=== PATIENT | male | born 1970 | race African-American/Black ===

== ENCOUNTER 2016-09-24 05:20 | Day surgery (SDC) | payer BC ==
[~2016-09-24] VITALS: Ht 198.1 cm; Wt 115.7 kg
[~2016-09-24 05:20] MED LIST: STRATTERA10 MG PO
[2016-09-24] MEDS ORDERED: VITAMIN B-1250 MCG (08:27)
[2016-09-24] MEDS ORDERED: VITAMIN C250 MG (08:27)
[2016-09-24 08:32] VITALS: BP 134/82; Ht 198.1 cm; Wt 115.7 kg
[2016-09-24] MEDS ORDERED: HYDROCODONE-APA1 TAB PO (10:47)
--- NOTE | 2016-09-24 13:39 | NUR ---
1300 DISCHARGE INSTRUCTIONS REVIEWED WITH PATIENT; VERBALIZED UNDERSTANDING. DECLINED CRUTCH TRAINING
--- NOTE | 2016-09-25 15:11 | OP ---
PATIENT NAME: MYRNA BOWSER MEDICAL RECORD: [id number] :68 LOCATION:[facility] ADMISSION DATE: SURGEON: MEL GLYNN MD DATE OF OPERATION: 09/24/2016 PREOPERATIVE DIAGNOSIS: Patellofemoral joint arthritis as well as lateral meniscus tear. POSTOPERATIVE DIAGNOSES: Patellofemoral joint arthritis as well as lateral meniscus tear. PROCEDURE: Arthroscopic partial lateral meniscectomy. SURGEON: Mel Glynn M.D. ANESTHESIA: General. INTRAOPERATIVE COMPLICATIONS: None. 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 OPERATIVE SUMMARY IN DETAIL: After obtaining the appropriate preoperative orthopedic surgery consent as well as anesthetic consultation, evaluation, and clearance, the patient was brought to the operating room and placed on the operating table in supine position. After adequate general laryngeal mask was administered, tourniquet was placed about the proximal aspect of the right lower extremity. Right lower extremity was then prepped and draped in a routine sterile fashion. The leg was elevated and exsanguinated and tourniquet inflated to 350 mmHg. Routine inferolateral portal was established followed by superior medial portal and inferomedial portal. Diagnostic arthroscopy did reveal the above findings. With the knee in a [id number] position, an arthroscopic resector was utilized to debride the lateral meniscus along with a meniscotome to debride the lateral meniscus back to stable meniscus elements. Having completed this, the portal was switched to the medial side for direct visualization of the lateral retinaculum. Lateral retinaculum was then released using arthroscopic scissors from the inferior lateral portal to just beneath the vastus lateralis insertion point of the tendon. Having completed this, arthroscopy portals were closed in routine interrupted fashion. The knee was insufflated with 30 cc of 0.25% Marcaine with epinephrine and 80 mg of Depo-Medrol. Arthroscopy portals were closed in routine interrupted fashion using 4-0 Prolene. Sterile dressings were applied. The patient was awakened, taken to recovery in stable condition. All final needle and sponge counts were correct. TRANSINT:[id number] Voice Confirmation ID: [id number] DOCUMENT ID: [id number] OPERATIVE REPORT [id number] NIELSMYRNA MEL LOPEZ MD at 1511 CC: [id number] DICTATION DATE: 09/24/16 1152 TELEVISION PRESENTER: 09/24/16 1259 [facility] 09/24/16 [id number] [place] [id number]
== END 2016-09-24 13:00 | disposition home or self-care (01) ==
LOC: D.OPS 05:20 → D.PAN 10:30 → D.OPS 12:25 → D.PAN 13:25 → D.OPS 13:30 → D.PAN 13:30
DX: M13.861 Other specified arthritis, right knee (principal); S83.271A Complex tear of lateral meniscus, current injury, right knee, initial encounter; M22.41 Chondromalacia patellae, right knee